=== PATIENT | female | born 1955 | race Caucasian/White ===

== ENCOUNTER 2018-08-04 14:11 | Emergency (ER) | payer OTHER ==
[~2018-08-04] VITALS: Ht 160 cm; Wt 60.3 kg
[2018-08-04 14:25] VITALS: BP 139/68
[2018-08-04] MEDS ORDERED: KETOROLAC 60 MG/2 ML VIAL IM ONE (14:45)
[2018-08-04 15:59] VITALS: BP 139/68
== END 2018-08-04 15:59 | disposition home or self-care (01) ==
LOC: MED 14:11
DX: S43.401A Unspecified sprain of right shoulder joint, initial encounter (principal); S13.9XXA Sprain of joints and ligaments of unspecified parts of neck, initial encounter; S73.101A Unspecified sprain of right hip, initial encounter; W01.0XXA Fall on same level from slipping, tripping and stumbling without subsequent striking against object, initial encounter; Y93.89 Activity, other specified; Y92.512 Supermarket, store or market as the place of occurrence of the external cause; Y99.8 Other external cause status
CPT/HCPCS: 72040; 73030; 73502; 96372; 99283; J1885; Q0092

== ENCOUNTER 2018-10-25 18:49 | Emergency (ER) | payer OTHER ==
[~2018-10-25] VITALS: Ht 160 cm; Wt 61.2 kg
[2018-10-25 18:55] VITALS: BP 136/64
--- NOTE | 2018-10-25 18:59 | NUR ---
PT VSS, NOT IN DISTRESS; AMB TO LOBBY ALONE
--- NOTE | 2018-10-25 19:55 | NUR ---
PATIENT AMBULATED TO ER BED 2.
--- NOTE | 2018-10-25 19:57 | NUR ---
PATIENT PRESENTS TO ED WITH C/O COUGH X 3 WEEKS. PT STATES THROAT AND CHEST HURT FROM COUGHING, PAIN 9/10. PT SPEAKING IN FULL. CLEAR SNETENCES. BREATHING IS UNLABORED. HX: RHEUMATOID ARTHRITIS DENIES N/V/D; SKIN IS PINK/WARM/DRY; AAOX4 WITH EVEN AND STEADY GAIT; LUNGS CLEAR BL; HR EVEN AND REGULAR; PT DENIES ANY FEVER, CP, SOB, OR COUGH AT THIS TIME; PATIENT STATES PAIN OF 6/10 WHILE COUGHING AT THIS TIME; VSS; PATIENT POSITIONED FOR COMFORT; HOB ELEVATED; BEDRAILS UP X2; BED DOWN. ER MD MADE AWARE OF PT STATUS.
[2018-10-25 20:54] VITALS: BP 136/64
--- NOTE | 2018-10-25 20:55 | NUR ---
Patient discharged with v/s stable. Written and verbal after care instructions given and explained. Patient alert, oriented and verbalized understanding of instructions. Ambulatory with steady gait. All questions addressed prior to discharge. ID band removed. Patient advised to follow up with PMD. Rx of AMOXICLLIN, PROMETHAZINE given. Patient educated on indication of medication including possible reaction and side effects. Opportunity to ask questions provided and answered.
== END 2018-10-25 20:54 | disposition home or self-care (01) ==
LOC: MED 18:49
DX: J02.8 Acute pharyngitis due to other specified organisms (principal); B96.89 Other specified bacterial agents as the cause of diseases classified elsewhere
CPT/HCPCS: 99283